=== PATIENT | male | born 2005 | race Caucasian/White ===

== ENCOUNTER 2023-04-17 16:04 | Outpatient (CLI) | payer OTHER, SELFPAY ==
[2023-04-17 20:50] LABS: Kit Draw Collected
== END 2023-04-17 16:05 | disposition home or self-care (01) ==
LOC: ANHGOSHLAB 16:06
PROVIDERS: PCP Family Medicine; Visit Provider Nurse Practitioner Family
DX: R59.1 Generalized enlarged lymph nodes (principal)
CPT/HCPCS: 36415